=== PATIENT | male | born 1995 | race Caucasian/White ===

== ENCOUNTER 2022-11-14 16:07 | Emergency (ER) | payer OTHER ==
[2022-11-14] MEDS ORDERED: HYDROcodone/Acetaminophen 5/325 mg Tablet ONE (16:37)
[2022-11-14] MEDS ORDERED: Ibuprofen 200 MG TAB ONE (17:29)
== END 2022-11-14 17:30 | disposition home or self-care (01) ==
LOC: CSHERS 16:07
DX: S42.322A Displaced transverse fracture of shaft of humerus, left arm, initial encounter for closed fracture (principal); W01.0XXA Fall on same level from slipping, tripping and stumbling without subsequent striking against object, initial encounter